=== PATIENT | female | born 1965 | race Caucasian/White ===

== ENCOUNTER → 2016-07-03 | Outpatient (CLI) | payer OTHER | LOC: HEART 5 10:27 | DX: D05.91 Unspecified type of carcinoma in situ of right breast (principal) | CPT/HCPCS: 93306 ==

== ENCOUNTER → 2016-07-28 | Outpatient (CLI) | payer OTHER | LOC: HEART 5 09:16 | DX: C50.411 Malignant neoplasm of upper-outer quadrant of right female breast (principal); C77.3 Secondary and unspecified malignant neoplasm of axilla and upper limb lymph nodes; Z17.0 Estrogen receptor positive status [ER+]; R06.00 Dyspnea, unspecified; I10 Essential (primary) hypertension | CPT/HCPCS: 93306 ==

== ENCOUNTER 2016-07-30 16:35 | Emergency (ER) | payer OTHER ==
[2016-07-30 18:42] LABS: HEMOGLOBIN 11.6 gm/dl (12.3-15.3); RED BLOOD COUNT 3.95 M/UL (4.00-5.10); WHITE BLOOD COUNT 5.8 K/UL (4.5-11.0)
== END 2016-07-30 21:05 | disposition home or self-care (01) ==
LOC: ER1 16:35 → ZEROF 21:05
PROVIDERS: Student in an Organized Health Care Education/Training Program
DX: D70.9 Neutropenia, unspecified (principal); R50.81 Fever presenting with conditions classified elsewhere; E11.9 Type 2 diabetes mellitus without complications; J11.1 Influenza due to unidentified influenza virus with other respiratory manifestations; A41.89 Other specified sepsis; Z85.3 Personal history of malignant neoplasm of breast; Z88.2 Allergy status to sulfonamides; Z90.49 Acquired absence of other specified parts of digestive tract
CPT/HCPCS: 36415; 71020; 80053; 81001; 82550; 82553; 83605; 83690; 83874; 84484; 85025; 85610; 85730; 87040; 87086; 96361; 96365; 99285; J0692; J7050

== ENCOUNTER → 2016-08-26 | Outpatient (CLI) | payer OTHER | LOC: HEART 5 10:32 | DX: C50.411 Malignant neoplasm of upper-outer quadrant of right female breast (principal); C77.3 Secondary and unspecified malignant neoplasm of axilla and upper limb lymph nodes; Z17.0 Estrogen receptor positive status [ER+] | CPT/HCPCS: 93306 ==

== ENCOUNTER → 2020-05-15 | Outpatient (CLI) | payer MEDICARE | LOC: US 04-15 08:30 → NM 04-15 08:30 → US 08:30 → NM 09:00 | DX: R10.84 Generalized abdominal pain (principal); R19.7 Diarrhea, unspecified; R93.2 Abnormal findings on diagnostic imaging of liver and biliary tract | CPT/HCPCS: 76705; 78264; A9541 ==